=== PATIENT | female | born 1960 | race Caucasian/White ===

== ENCOUNTER → 2019-07-28 | Outpatient (CLI) | payer OTHER | END | disposition home or self-care (01) | LOC: CVU 06:54 | PROVIDERS: ATTEND Nurse Practitioner Family | DX: I83.93 Asymptomatic varicose veins of bilateral lower extremities (principal) | CPT/HCPCS: 93970 ==

== ENCOUNTER → 2019-11-15 | Outpatient (CLI) | payer OTHER | END | disposition home or self-care (01) | LOC: CFH 13:14 | PROVIDERS: ATTEND Registered Nurse | DX: Z12.2 Encounter for screening for malignant neoplasm of respiratory organs (principal); M51.35 Other intervertebral disc degeneration, thoracolumbar region; M41.85 Other forms of scoliosis, thoracolumbar region; K44.9 Diaphragmatic hernia without obstruction or gangrene; Z87.891 Personal history of nicotine dependence | CPT/HCPCS: G0297 ==

== ENCOUNTER 2019-12-04 17:08 | Emergency (ER) | payer OTHER ==
[~2019-12-04] VITALS: Ht 177.8 cm; Wt 88.9 kg
--- NOTE | 2019-12-04 17:27 | NUR ---
PT ENDORSED TO BREAK RN
--- NOTE | 2019-12-04 17:30 | NUR ---
FIRST CONTACT WITH PATIENT BY RN: THIS IS A 59 YO FEMALE COMING IN WITH C/O REDNESS/SWELLING/WARMTH NOTED TO UPPER LEFT MEDIAL CALF STARTING YESTERDAY AT APPROX 1600. CSM INTACT IN LOWER EXTREMITY. NO OTHER COMPLAINTS AT THIS TIME. MONITORING IN PLACE, CALL LIGHT IN REACH. FRANCINE CRAWFORD.
--- NOTE | 2019-12-04 18:57 | NUR ---
RESTING QUIETLY ON GURNEY. LT INNER CALF REDDENED & WARM TO TOUCH. PT REPORTS TENDERNESS TO TOUCH. PEDAL PULSE WNL. PT DENIES RECENT TRAVEL. 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
[2019-12-04 18:58] VITALS: BP 145/93
== END 2019-12-04 19:59 | disposition home or self-care (01) ==
LOC: ED 17:38
DX: I80.02 Phlebitis and thrombophlebitis of superficial vessels of left lower extremity (principal); M79.89 Other specified soft tissue disorders; M25.572 Pain in left ankle and joints of left foot
CPT/HCPCS: 99284